=== PATIENT | female | born 1970 | race Caucasian/White ===

== ENCOUNTER 2021-08-07 08:22 | Observation (INO) ==
[~2021-08-07 08:22] MED LIST: Polymyxin B Sulfate 500,000 UNIT, Sodium Chloride IRRigation 1,000 ML IR ONE
[2021-08-07] MEDS ORDERED: *HR* Midazolam HCl 2 MG/2 ML VIAL ONE (08:54)
[2021-08-07] MEDS ORDERED: *HR* FentaNYL (PF) 100 MCG/2 ML VIAL ONE (08:54)
[2021-08-07] MEDS ORDERED: Lidocaine -MPF 2% 5 ML VIAL ONE (08:54)
[2021-08-07] MEDS ORDERED: *HR* Propofol 200 MG/20 ML VIAL IVP ONE (08:54)
[2021-08-07] MEDS ORDERED: *HR* Rocuronium Bromide 50 MG/5 ML VIAL ONE (08:59)
[2021-08-07] MEDS ORDERED: CeFAZolin Syr 2,000MG/20 ML 2,000 MG/20 ML SYRINGE IVPB ONE (08:59)
[2021-08-07] MEDS ORDERED: Ringers Solution, Lactated 1,000 ML IVC SCH (09:00)
[2021-08-07] MEDS ORDERED: Pregabalin 75 MG CAPSULE PO ONE (09:00)
[2021-08-07] MEDS ORDERED: *HR* Remifentanil 1 MG VIAL IVP ONE ×2 (09:21→12:02)
[2021-08-07] MEDS ORDERED: *HR* HYDROMORPHONE 2 MG/ML VIAL ONE ×2 (09:27→13:52)
[2021-08-07] MEDS ORDERED: Famotidine 20 MG TABLET PO ONE ×2 (09:30→10:00)
[2021-08-07] MEDS ORDERED: Vancomycin 1,000 MG VIAL ONE (10:03)
[2021-08-07] MEDS ORDERED: Ondansetron 4 MG/2 ML VIAL ONE (10:33)
[2021-08-07] MEDS ORDERED: EPHEDrine 50 MG/ML VIAL ONE (10:35)
[2021-08-07] MEDS ORDERED: *HR* Phenylephrine 10 MG/ML VIAL ONE (12:07)
[2021-08-07] MEDS ORDERED: Sugammadex Sodium 200 MG/2 ML VIAL IV ONE (12:39)
[2021-08-07] MEDS ORDERED: *HR* HYDROmorphone PF 0.5 MG/0.5 ML SYRINGE IVP PRN (14:00)
[2021-08-07] MEDS ORDERED: Ondansetron 4 MG/2 ML VIAL IVP PRN ×2 (14:00→15:39)
[2021-08-07] MEDS ORDERED: *HR* OxyCODONE Immed Rel 5 MG TABLET PO PRN (14:00)
[2021-08-07] MEDS ORDERED: *HR* FentaNYL (PF) 100 MCG/2 ML VIAL IVP PRN (14:00)
[2021-08-07] MEDS ORDERED: Acetaminophen 325 MG TABLET PO PRN (15:39)
[2021-08-07] MEDS ORDERED: Naloxone 0.4 MG/ML INJ IVP PRN (15:39)
[2021-08-07] MEDS ORDERED: *HR* HYDROcodone/Acet 5/325 mg TABLET PO PRN (15:39)
[2021-08-07] MEDS: Ringers Solution, Lactated 1,000 ML IVC SCH (16:33)
[2021-08-07] MEDS: CeFAZolin 2 GM/120 ML BAG IVPB SCH (17:38)
[2021-08-07] MEDS: Pregabalin 50 MG CAPSULE PO SCH (19:40)
[2021-08-08] MEDS: *HR* OxyCODONE Immed Rel 5 MG TABLET PO PRN ×2 (00:18→17:34)
[2021-08-08] MEDS: CeFAZolin 2 GM/120 ML BAG IVPB SCH (01:45)
[2021-08-08] MEDS: Aspirin Enteric Coated 81 MG Tablet PO SCH (07:44)
[2021-08-08] MEDS: lisinopriL 20 MG TABLET PO SCH (07:44)
[2021-08-08] MEDS: Pregabalin 50 MG CAPSULE PO SCH ×3 (07:44→20:16)
[2021-08-08] MEDS: hydroCHLOROthiazide 25 MG TABLET PO SCH (07:45)
[2021-08-08] MEDS: Ringers Solution, Lactated 1,000 ML IVC SCH (15:19)
[2021-08-09] MEDS: *HR* OxyCODONE Immed Rel 5 MG TABLET PO PRN (02:18)
[2021-08-09 03:13] VITALS: PULSE 71
[2021-08-09 06:37] VITALS: BP 102/64; TEMP 98.6; O2SAT 93
[2021-08-09] MEDS: hydroCHLOROthiazide 25 MG TABLET PO SCH (09:12)
[2021-08-09] MEDS: lisinopriL 20 MG TABLET PO SCH (09:12)
[2021-08-09] MEDS: Aspirin Enteric Coated 81 MG Tablet PO SCH (09:12)
[2021-08-09] MEDS: Pregabalin 50 MG CAPSULE PO SCH (09:12)
[2021-08-09] MEDS ORDERED: Moderna Covid-19 Vaccine 100MCG/0.5mL IM ONE (10:10)
== END 2021-08-09 13:06 | disposition home or self-care (01) ==
LOC: 4WAOSI 08:22 → SDCAOSI 08:22 → 4WAOSI 15:38
PROVIDERS: ADMIT Orthopaedic Surgery Orthopaedic Surgery of the Spine; ATTEND Orthopaedic Surgery Orthopaedic Surgery of the Spine